=== PATIENT | female | born 1950 | race Hispanic/Latino ===

== ENCOUNTER → 2017-12-05 | Outpatient (CLI) | payer MEDICAID | LOC: RAH 09:07 | PROVIDERS: ATTEND Internal Medicine Critical Care Medicine | DX: Z12.31 Encounter for screening mammogram for malignant neoplasm of breast (principal) | CPT/HCPCS: 77067 ==

== ENCOUNTER → 2018-12-06 | Outpatient (CLI) | payer MEDICAID | END | disposition home or self-care (01) | LOC: RAH 08:59 | PROVIDERS: ATTEND Internal Medicine Critical Care Medicine | DX: Z12.31 Encounter for screening mammogram for malignant neoplasm of breast (principal) | CPT/HCPCS: 77067 ==

== ENCOUNTER 2020-02-03 11:12 | Inpatient (IN) | payer MEDICAID ==
[~2020-02-03] VITALS: Ht 157.5 cm; Wt 53.2 kg
[2020-02-03 11:50] LABS: BASOPHILS % (AUTO) 0.1 % (0.0-5.0); HEMATOCRIT 39.4 % (36-48); LYMPHOCYTES % (AUTO) 4.3 % (21.0-51.0); MEAN CORPUSCULAR HEMOGLOBIN 28.6 pg (27.0-33.0); MEAN CORPUSCULAR VOLUME 86.6 fL (79-99); MONOCYTES % (AUTO) 7.4 % (3.0-13.0); NEUTROPHILS % (AUTO) 87.8 % (40.0-77.0); PLATELET COUNT (AUTO) 310 K/uL (130-400); RED BLOOD CELL COUNT(AUTO) 4.55 MIL/uL (4.00-5.50); WHITE BLOOD COUNT (AUTO) 13.8 K/uL (4.8-10.8)
[2020-02-03 11:56] LABS: CREATININE 0.8 mg/dL (0.5-1.5); POTASSIUM 3.3 mmol/L (3.5-5.1)
[2020-02-03 12:13] LABS: RAPID GROUP A STREP NEGATIVE (NEGATIVE)
[2020-02-03 12:31] LABS: B-TYPE NATRIURETIC PEPTIDE 21 pg/mL (0-100)
[2020-02-03] MEDS ORDERED: METHYLPREDNISOLONE SOD SUCC 125MG/2ML VIAL ONE (12:32)
[2020-02-03] MEDS ORDERED: ALBUTEROL INHALER 90MCG/INH IH ONE (12:33)
[2020-02-03] MEDS ORDERED: ENOXAPARIN SODIUM 40 MG/0.4 ML SYRINGE SQ ONE (13:07)
[2020-02-03 13:19] LABS: APPEARANCE,URINE Clear (CLEAR); BILIRUBIN,URINE Negative (NEGATIVE); COLOR,URINE Yellow (YELLOW); GLUCOSE, URINE (UA) >=1000 mg/dL (NEGATIVE); KETONES,URINE >=160 mg/dL (NEGATIVE); LEUKOCYTE ESTERASE ,URINE Negative (NEGATIVE); NITRATE,URINE Negative (NEGATIVE); OCCULT BLOOD,URINE Small (NEGATIVE); PROTEIN,URINE POS 2+ mg/dL (NEGATIVE)
[2020-02-03] MEDS ORDERED: DEXTROSE 50%-WATER 50 ML DISP.SYRIN IV PRN (13:30)
[2020-02-03] MEDS ORDERED: IPRATROPIUM/ALBUTEROL SULFATE 3 ML SOLUTION IH PRN (13:30)
[2020-02-03] MEDS ORDERED: LOPERAMIDE 1 MG/7.5 ML UDCUP PO PRN (13:30)
[2020-02-03] MEDS ORDERED: ONDANSETRON HCL 4 MG/2 ML VIAL IVP PRN (13:30)
[2020-02-03] MEDS: FUROSEMIDE 10 MG/ML 4ML VIAL IV SCH (13:30)
[2020-02-03] MEDS ORDERED: MAGNESIUM 2GM PREMIX 50ML 50 ML IV PRN (13:30)
[2020-02-03] MEDS ORDERED: LABETALOL 20 MG/4 ML DISP.SYRIN IV PRN (13:30)
[2020-02-03] MEDS ORDERED: HYDRALAZINE HCL 20 MG/ML VIAL IV PRN (13:30)
[2020-02-03] MEDS ORDERED: POTASSIUM CHLORIDE 10% ELIXIR 20 MEQ/15 ML UDCUP PO PRN (13:30)
[2020-02-03] MEDS ORDERED: GLUCAGON 1MG KIT 1 MG ML IM PRN (13:30)
[2020-02-03] MEDS ORDERED: LIDOCAINE HCL-MPF 1% 2ML VIAL IV PRN (13:30)
[2020-02-03] MEDS ORDERED: LACTULOSE 20 GM/30 ML UDCUP PO PRN (13:30)
[2020-02-03] MEDS ORDERED: POTASSIUM CHLORIDE 20MEQ/100ML 100 ML IV PRN (13:30)
[2020-02-03 13:39] LABS: BACTERIA,URINE Few /HPF (None Seen); TRANSITIONAL EPI CELLS,URINE Few /HPF (None Seen)
[2020-02-03] MEDS ORDERED: LOPERAMIDE HCL 2 MG CAP PO PRN (14:15)
[2020-02-03 14:28] LABS: CRP QUANTITATIVE 470.7 mg/L (0.00-9.0)
[2020-02-03 14:29] LABS: ABG BASE EXCESS -7.2 mmol/L (-2.0-3.0); ABG HCO3 16.6 mmol/L (21.0-28.0); ABG OXYGEN SATURATION 91.3 % (95.0-99.0); ABG PCO2 30 mmHg (32-45)
[2020-02-03] MEDS ORDERED: ALBUTEROL INHALER 90MCG/INH IH PRN (14:45)
[2020-02-03] MEDS: CEFTRIAXONE SODIUM 1 GM IVP SCH (14:45)
[2020-02-03] MEDS ORDERED: AZITHROMYCIN 500MG+NS 250ML 250 ML IV ONE (14:51)
[2020-02-03] MEDS ORDERED: FUROSEMIDE 10 MG/ML 4ML VIAL ONE (15:36)
[2020-02-03] MEDS ORDERED: PHARMACY COMMUNICATION MISC SCH (16:30)
[2020-02-03] MEDS ORDERED: DOXYCYCLINE HYCLATE 100 MG TABLET PO ONE (17:36)
[2020-02-03] MEDS ORDERED: CEFTRIAXONE SODIUM 1 GM ONE (17:37)
[2020-02-03] MEDS: DOXYCYCLINE HYCLATE 100 MG TABLET PO SCH (21:00)
[2020-02-03] MEDS ORDERED: POTASSIUM CHLORIDE 20 MEQ ERTAB PO ONE (22:14)
[2020-02-03] MEDS ORDERED: INSULIN HUMULIN R 100 UNIT/ML 3ML ONE (22:15)
[2020-02-04] VITALS: BP 121/57
[2020-02-04] MEDS: FUROSEMIDE 10 MG/ML 4ML VIAL IV SCH ×2 (01:30→13:30)
[2020-02-04] MEDS ORDERED: FUROSEMIDE 10 MG/ML 4ML VIAL ONE ×2 (04:06→15:39)
[2020-02-04 05:00] LABS: BASOPHILS % (AUTO) 0.2 % (0.0-5.0); HEMATOCRIT 38.7 % (36-48); LYMPHOCYTES % (AUTO) 4.9 % (21.0-51.0); MEAN CORPUSCULAR HEMOGLOBIN 27.9 pg (27.0-33.0); MEAN CORPUSCULAR HGB CONC 32.6 g/dL (32.0-36.0); MEAN CORPUSCULAR VOLUME 85.8 fL (79-99); MONOCYTES % (AUTO) 5.1 % (3.0-13.0); NEUTROPHILS % (AUTO) 89.4 % (40.0-77.0); PLATELET COUNT (AUTO) 335 K/uL (130-400); RED BLOOD CELL COUNT(AUTO) 4.51 MIL/uL (4.00-5.50); WHITE BLOOD COUNT (AUTO) 10.7 K/uL (4.8-10.8)
[2020-02-04 05:14] LABS: ALBUMIN 2.6 g/dL (3.5-5.0); BILIRUBIN,TOTAL 0.5 mg/dL (0.2-1.0); CREATININE 1.2 mg/dL (0.5-1.5); POTASSIUM 3.5 mmol/L (3.5-5.1); TOTAL PROTEIN, SERUM 7.5 g/dL (6.0-8.3)
[2020-02-04] MEDS ORDERED: DOXYCYCLINE HYCLATE 100 MG TABLET PO ONE (05:29)
[2020-02-04] MEDS: DOXYCYCLINE HYCLATE 100 MG TABLET PO SCH ×2 (09:00→21:48)
[2020-02-04] MEDS: DEXAMETHASONE SOD PHOSPHATE 4 MG/ML 1ML VIAL IVP SCH (09:00)
[2020-02-04] MEDS ORDERED: ENOXAPARIN SODIUM 1 MG/KG SQ SCH (09:00)
[2020-02-04] MEDS: PANTOPRAZOLE SODIUM 40 MG TABLET.DR PO SCH (09:00)
[2020-02-04] MEDS ORDERED: PANTOPRAZOLE SODIUM 40 MG TABLET.DR ONE (09:19)
--- NOTE | 2020-02-04 11:20 | NUR ---
BRYAN unable to meet with pt who is in ER covid unit. Bryan called cell # [phone], no answer. Bryan called daughter Loraine Osman [phone], left message. SW to f/u and complete IA
--- NOTE | 2020-02-04 11:31 | NUR ---
DCP: HOME Sw recd call back from pt's daughter Loraine Osman [phone]. Per daughter, pt lives at home alone. Loraine is pt's provider 17hrs a week thru [employer]. Pt usesno DME of services. Daughter transports as needed. PCP is Dr Mauro and pt's uses [facility]. Per daughter, pt's daughter from [place] came to visit and exposed pt and pt's other daughter with covid. Pt's daughter waiting on results. Plan is home at ia Addendum: 02/04/20 at 1136 by AURY ASHBY Amended: Links added.
[2020-02-04] MEDS: INSULIN HUMULIN R 100 UNIT/ML 3ML SQ SCH ×3 (12:11→21:00)
[2020-02-04] MEDS: CEFTRIAXONE SODIUM 1 GM IVP SCH (14:45)
[2020-02-04] MEDS ORDERED: SODIUM CHLORIDE 0.9% 50 ML IV ONE (15:42)
[2020-02-04] MEDS ORDERED: CEFTRIAXONE SODIUM 1 GM ONE (16:15)
[2020-02-04] MEDS ORDERED: PHARMACY COMMUNICATION MISC SCH (18:15)
[2020-02-05 04:00] VITALS: BP 146/67
[2020-02-05] MEDS ORDERED: FUROSEMIDE 10 MG/ML 4ML VIAL ONE ×2 (04:23→12:59)
[2020-02-05] MEDS: FUROSEMIDE 10 MG/ML 4ML VIAL IV SCH ×2 (04:29→13:30)
[2020-02-05] MEDS: INSULIN HUMULIN R 100 UNIT/ML 3ML SQ SCH ×2 (06:41→11:30)
[2020-02-05 08:00] VITALS: BP 113/67
[2020-02-05] MEDS: PANTOPRAZOLE SODIUM 40 MG TABLET.DR PO SCH (09:00)
[2020-02-05] MEDS: ENOXAPARIN SODIUM 60 MG/0.6 ML SQ SCH (09:00)
[2020-02-05] MEDS: DEXAMETHASONE SOD PHOSPHATE 4 MG/ML 1ML VIAL IVP SCH (09:00)
[2020-02-05] MEDS: DOXYCYCLINE HYCLATE 100 MG TABLET PO SCH ×2 (09:00→21:00)
[2020-02-05] MEDS ORDERED: ENOXAPARIN SODIUM 60 MG/0.6 ML SQ ONE (10:16)
[2020-02-05] MEDS ORDERED: DOXYCYCLINE HYCLATE 100 MG TABLET PO ONE (10:16)
[2020-02-05] MEDS ORDERED: DEXAMETHASONE SOD PHOSPHATE 10MG/ML 1ML VIAL ONE (10:17)
[2020-02-05] MEDS ORDERED: PANTOPRAZOLE SODIUM 40 MG TABLET.DR ONE (10:17)
[2020-02-05 12:00] VITALS: BP 139/85
--- NOTE | 2020-02-05 12:10 | NUR ---
DISCUSSED POSSIBLE DC NEEDS W PATRICIA PENA AND RT KING- ACCORDING TO MED HOST, PATIENT CURRENTLY ON 4 LNC SATS 94%- WILL WAIT FOR RECOMMENDATIONS AND OR WEANING
[2020-02-05] MEDS ORDERED: CEFTRIAXONE SODIUM 1 GM ONE (12:59)
[2020-02-05] MEDS ORDERED: INSULIN HUMULIN R 100 UNIT/ML 3ML ONE ×2 (13:00→17:54)
[2020-02-05] MEDS: CEFTRIAXONE SODIUM 1 GM IVP SCH (13:53)
--- NOTE | 2020-02-05 15:09 | NUR ---
ALLO2 REFRRAL INFO SENT TO [facility] PATIENT ADVISED BY P COULD BE PROCESSED TODAY
[2020-02-05 16:00] VITALS: BP 119/61
[2020-02-06] MEDS: FUROSEMIDE 10 MG/ML 4ML VIAL IV SCH ×2 (01:30→17:37)
[2020-02-06] MEDS ORDERED: FUROSEMIDE 10 MG/ML 4ML VIAL ONE (02:23)
[2020-02-06] MEDS ORDERED: DOXYCYCLINE HYCLATE 100 MG TABLET PO ONE (02:23)
[2020-02-06 07:06] LABS: BASOPHILS % (AUTO) 0.2 % (0.0-5.0); EOSINOPHILS % (AUTO) 0.2 % (0.0-8.0); HEMATOCRIT 36.3 % (36-48); LYMPHOCYTES % (AUTO) 4.7 % (21.0-51.0); MEAN CORPUSCULAR HEMOGLOBIN 28.1 pg (27.0-33.0); MEAN CORPUSCULAR HGB CONC 33.3 g/dL (32.0-36.0); MEAN CORPUSCULAR VOLUME 84.4 fL (79-99); MONOCYTES % (AUTO) 7.3 % (3.0-13.0); NEUTROPHILS % (AUTO) 86.9 % (40.0-77.0); PLATELET COUNT (AUTO) 281 K/uL (130-400); RED CELL DISTRIBUTION WIDTH 13.1 % (11.0-15.5); WHITE BLOOD COUNT (AUTO) 11.9 K/uL (4.8-10.8)
[2020-02-06] MEDS: INSULIN HUMULIN R 100 UNIT/ML 3ML SQ SCH ×4 (07:30→21:04)
[2020-02-06 08:29] LABS: ALBUMIN 2.5 g/dL (3.5-5.0); BILIRUBIN,TOTAL 0.5 mg/dL (0.2-1.0); CREATININE 0.9 mg/dL (0.5-1.5); MAGNESIUM 2.3 mg/dL (1.80-2.40); TOTAL PROTEIN, SERUM 6.9 g/dL (6.0-8.3)
--- NOTE | 2020-02-06 10:13 | NUR ---
DISPO EXPECTED TO BE TO HOME WHEN O2 SET UP Addendum: 02/06/20 at 1013 by MARIA ANTONIA MCKENNA RN CM Amended: Links added.
[2020-02-06] MEDS: DOXYCYCLINE HYCLATE 100 MG TABLET PO SCH ×2 (11:39→21:00)
[2020-02-06] MEDS: PANTOPRAZOLE SODIUM 40 MG TABLET.DR PO SCH (11:39)
[2020-02-06] MEDS: DEXAMETHASONE SOD PHOSPHATE 4 MG/ML 1ML VIAL IVP SCH (11:40)
[2020-02-06] MEDS: CEFTRIAXONE SODIUM 1 GM IVP SCH (11:40)
[2020-02-06] MEDS: ENOXAPARIN SODIUM 60 MG/0.6 ML SQ SCH (11:53)
[2020-02-06] MEDS: POTASSIUM CHLORIDE 20 MEQ ERTAB PO PRN ×3 (11:54→19:21)
[2020-02-06 12:03] VITALS: BP 127/60
[2020-02-06 16:00] VITALS: BP 132/67
[2020-02-06 19:30] VITALS: BP 116/56
[2020-02-07] VITALS (7 sets, daily range): BP systolic 107–136; BP diastolic 59–79
[2020-02-07 04:15] LABS: ABG HCO3 20.8 mmol/L (21.0-28.0); ABG OXYGEN SATURATION 93.7 % (95.0-99.0); ABG PCO2 31 mmHg (32-45)
[2020-02-07 04:24] LABS: HEMOGLOBIN A1C 8.3 % (4.0-6.0)
[2020-02-07 04:31] LABS: CREATININE 0.8 mg/dL (0.5-1.5)
[2020-02-07] MEDS: FUROSEMIDE 10 MG/ML 4ML VIAL IV SCH ×2 (04:45→16:33)
[2020-02-07] MEDS: INSULIN HUMULIN R 100 UNIT/ML 3ML SQ SCH ×4 (05:48→21:05)
[2020-02-07] MEDS: DOXYCYCLINE HYCLATE 100 MG TABLET PO SCH ×2 (08:31→21:04)
[2020-02-07] MEDS: DEXAMETHASONE SOD PHOSPHATE 4 MG/ML 1ML VIAL IVP SCH (08:31)
[2020-02-07] MEDS: ENOXAPARIN SODIUM 60 MG/0.6 ML SQ SCH (08:31)
[2020-02-07] MEDS: PANTOPRAZOLE SODIUM 40 MG TABLET.DR PO SCH (08:31)
--- NOTE | 2020-02-07 12:00 | NUR ---
AT 1145 PT O2 SATS WERE DROPPING IN THE 80%. PT PLACED ON VENTI MASK AT 15L AND IS NOW SATING AT 92%. MADE AWARE OF CHANGES.
[2020-02-07] MEDS: GUAIFENESIN-DM 200/20 MG 10 ML PO PRN (12:33)
--- NOTE | 2020-02-07 14:38 | NUR ---
CM NOTE/[facility] PAT[facility] PER [facility] PAT[facility], PENDING OXYGEN CONCENTRATORS TO BE AVAILABLE TO THEM. OUT OF OXYGEN AT THE MOMENT. PATIENT NOT READY FOR DC SHE DESATS INTO 80%, MD AWARE.
[2020-02-07] MEDS: CEFTRIAXONE SODIUM 1 GM IVP SCH (14:57)
[2020-02-08 03:05] VITALS: BP 116/62
[2020-02-08] MEDS: FUROSEMIDE 10 MG/ML 4ML VIAL IV SCH ×2 (05:58→17:08)
[2020-02-08] MEDS: INSULIN HUMULIN R 100 UNIT/ML 3ML SQ SCH ×4 (06:03→21:45)
[2020-02-08 06:08] LABS: BASOPHILS % (AUTO) 0.5 % (0.0-5.0); HEMATOCRIT 42.1 % (36-48); LYMPHOCYTES % (AUTO) 7.7 % (21.0-51.0); MEAN CORPUSCULAR HEMOGLOBIN 28.3 pg (27.0-33.0); MEAN CORPUSCULAR HGB CONC 33.3 g/dL (32.0-36.0); MEAN CORPUSCULAR VOLUME 85.2 fL (79-99); NEUTROPHILS % (AUTO) 79.6 % (40.0-77.0); PLATELET COUNT (AUTO) 262 K/uL (130-400); RED BLOOD CELL COUNT(AUTO) 4.94 MIL/uL (4.00-5.50); RED CELL DISTRIBUTION WIDTH 12.9 % (11.0-15.5); WHITE BLOOD COUNT (AUTO) 11.8 K/uL (4.8-10.8)
[2020-02-08 06:33] LABS: CREATININE 0.6 mg/dL (0.5-1.5); MAGNESIUM 2.5 mg/dL (1.80-2.40); PHOSPHORUS 2.2 mg/dL (2.5-4.9); POTASSIUM 3.6 mmol/L (3.5-5.1)
[2020-02-08 08:00] VITALS: BP 99/59
--- NOTE | 2020-02-08 08:15 | NUR ---
AM ASSESSMENT PT AWAKE AND ALERT, O2 PER NON-REBREATHER, COLLEEN SOB, DENIES PAIN. PATIENT REMINDED NOT TO REMOVE O2, DESATURATES TO MID 80'S OFF O2. O2 SAT 94-05% WITH NON-REBREATHER. CALL LIGHT WITHIN REACH
[2020-02-08] MEDS: DOXYCYCLINE HYCLATE 100 MG TABLET PO SCH ×2 (09:05→21:44)
[2020-02-08] MEDS: DEXAMETHASONE SOD PHOSPHATE 4 MG/ML 1ML VIAL IVP SCH (09:05)
[2020-02-08] MEDS: PANTOPRAZOLE SODIUM 40 MG TABLET.DR PO SCH (09:05)
[2020-02-08] MEDS: ENOXAPARIN SODIUM 60 MG/0.6 ML SQ SCH (09:07)
[2020-02-08 12:00] VITALS: BP 124/71
[2020-02-08] MEDS: CEFTRIAXONE SODIUM 1 GM IVP SCH (15:44)
[2020-02-08 16:00] VITALS: BP 136/63
--- NOTE | 2020-02-08 16:00 | NUR ---
DR CIARA URBINA HERE TO SEE PT, STATES PATIENT AGREED FOR CONVALESCENT PLASMA. PER BRIDGETTE [facility], WILL REGISTER PT.
--- NOTE | 2020-02-08 16:15 | NUR ---
LAB CALL PLACED TO LAB AND CONFIRMED PT HAS CURRENT TYPE AND SCREEN
[2020-02-08 20:40] VITALS: BP 105/66
[2020-02-08 23:51] VITALS: BP 129/64
[2020-02-09 03:40] VITALS: BP 111/65
[2020-02-09] MEDS: GUAIFENESIN-DM 200/20 MG 10 ML PO PRN ×3 (03:49→21:32)
[2020-02-09 04:54] LABS: ABG BASE EXCESS 3.1 mmol/L (-2.0-3.0); ABG OXYGEN SATURATION 94.2 % (95.0-99.0); ABG PCO2 39 mmHg (32-45)
[2020-02-09] MEDS: INSULIN HUMULIN R 100 UNIT/ML 3ML SQ SCH ×4 (06:05→21:31)
[2020-02-09 06:17] LABS: BASOPHILS % (AUTO) 0.3 % (0.0-5.0); EOSINOPHILS % (AUTO) 0.1 % (0.0-8.0); LYMPHOCYTES % (AUTO) 5.6 % (21.0-51.0); MEAN CORPUSCULAR HEMOGLOBIN 27.7 pg (27.0-33.0); MEAN CORPUSCULAR HGB CONC 32.9 g/dL (32.0-36.0); MEAN CORPUSCULAR VOLUME 84.2 fL (79-99); MONOCYTES % (AUTO) 9.2 % (3.0-13.0); PLATELET COUNT (AUTO) 248 K/uL (130-400); RED BLOOD CELL COUNT(AUTO) 4.87 MIL/uL (4.00-5.50); RED CELL DISTRIBUTION WIDTH 12.9 % (11.0-15.5); WHITE BLOOD COUNT (AUTO) 12.7 K/uL (4.8-10.8)
[2020-02-09] MEDS: FUROSEMIDE 10 MG/ML 4ML VIAL IV SCH ×2 (06:38→17:24)
[2020-02-09 06:44] LABS: ALBUMIN 2.4 g/dL (3.5-5.0); BILIRUBIN,DIRECT 0.1 mg/dL (0.0-0.3); BILIRUBIN,TOTAL 0.5 mg/dL (0.2-1.0); CREATININE 0.8 mg/dL (0.5-1.5); MAGNESIUM 2.4 mg/dL (1.80-2.40); PHOSPHORUS 2.6 mg/dL (2.5-4.9); TOTAL PROTEIN, SERUM 6.6 g/dL (6.0-8.3)
[2020-02-09 06:52] LABS: POTASSIUM 2.9 mmol/L (3.5-5.1)
[2020-02-09 08:41] VITALS: BP 122/65
[2020-02-09] MEDS: PANTOPRAZOLE SODIUM 40 MG TABLET.DR PO SCH (08:59)
[2020-02-09] MEDS: POTASSIUM CHLORIDE 20 MEQ ERTAB PO PRN ×2 (08:59→12:13)
[2020-02-09] MEDS: DOXYCYCLINE HYCLATE 100 MG TABLET PO SCH (08:59)
[2020-02-09] MEDS: DEXAMETHASONE SOD PHOSPHATE 4 MG/ML 1ML VIAL IVP SCH (08:59)
[2020-02-09] MEDS: ENOXAPARIN SODIUM 60 MG/0.6 ML SQ SCH (09:00)
--- NOTE | 2020-02-09 12:30 | NUR ---
CONVALESCENT PLASMA TRANSFUSION STARTED AFTER S/S OF ADVERSE REACTION EXPLAINED TO PT. AND VERBALIZED UNDERSTANDING; ALL QUESTIONS ANSWERED. THIS NURSE AT BEDSIDE.
--- NOTE | 2020-02-09 12:35 | NUR ---
TRANSFUSION IN PROGRESS. DENIES ANY C/O AT THIS TIME. ALL LIGHT WITHIN REACH. THIS NURSE AT BEDSIDE.
[2020-02-09 12:44] VITALS: BP 105/61
--- NOTE | 2020-02-09 13:20 | NUR ---
TRANSFUSION IN PROGRESS. PT. RESTING IN BED WITH EYES CLOSED, RESP.'S EVEN AND UNLABORED. NRB REMAINS IN PLACE. HOB AT 30 DEGREES.
--- NOTE | 2020-02-09 13:40 | NUR ---
PLASMA TRANSFUSION COMPLETED. DENIES ANY C/O AT THIS TIME. CALL LIGHT WITHIN REACH.
[2020-02-09] MEDS: CEFTRIAXONE SODIUM 1 GM IVP SCH (13:57)
--- NOTE | 2020-02-09 15:45 | NUR ---
SECOND UNIT OF PLASMA STARTED AFTER S/S OF ADVERSE REACTION EXPLAINED TO PT.; VERBALIZED UNDERSTANDING. CALL LIGHT WITHIN REACH.
--- NOTE | 2020-02-09 15:52 | NUR ---
TRANSFUSION IN PROGRESS, PT. DENIES ANY C/O.
--- NOTE | 2020-02-09 16:25 | NUR ---
DR. Afsaneh YOUNG IN ROOM SPEAKING WITH PT. Addendum: 02/09/20 at 1634 by SAMANTHA MENDOZA RN RN PLASMA TRANSFUSION IN PROGRESS.
[2020-02-09 16:32] VITALS: BP 112/69
--- NOTE | 2020-02-09 17:05 | NUR ---
TRANSFUSION COMPLETED. TOLERATED W/O C/O. CALL LIGHT WITHIN REACH.
[2020-02-09 20:13] VITALS: BP 123/87
[2020-02-09 23:42] VITALS: BP 112/58
[2020-02-10 03:51] VITALS: BP 125/68
[2020-02-10] MEDS: INSULIN HUMULIN R 100 UNIT/ML 3ML SQ SCH ×4 (06:33→20:50)
[2020-02-10 08:00] VITALS: BP 114/53
--- NOTE | 2020-02-10 08:05 | NUR ---
PT. RESTING IN BED WITH EYES CLOSED, RESP.'S EVEN AND UNLABORED. AWOKE FROM SLEEP. ALERT AND ORIENTED X3. DENIES ANY C/O SOB, DENIES ANY CURRENT PAIN. STATES BREATHING BETTER AND WAS ABLE TO SLEEP LAST NIGHT. O2 SATURATION 96-98% ON NRB; NRB CHANGED TO VM AT 50%. CALL LIGHT WITHIN REACH, VERBALIZED ABILITY TO USE. O2 SAT.-94% ON VM AT 50% FIO2.
[2020-02-10] MEDS: DEXAMETHASONE SOD PHOSPHATE 4 MG/ML 1ML VIAL IVP SCH (08:06)
[2020-02-10] MEDS: ENOXAPARIN SODIUM 40 MG/0.4 ML SYRINGE SQ SCH (08:06)
[2020-02-10] MEDS: PANTOPRAZOLE SODIUM 40 MG TABLET.DR PO SCH (08:07)
[2020-02-10] MEDS: FUROSEMIDE 10 MG/ML 2ML VIAL IV SCH (08:07)
[2020-02-10 12:00] VITALS: BP 111/61
--- NOTE | 2020-02-10 13:03 | NUR ---
DR. Afsaneh YOUNG IN ROOM SPEAKING WITH PT. RE:PLAN OF CARE. PT. ON 50% VM AT PRESENT TIME. DENIES ANY C/O SOB.
[2020-02-10 16:00] VITALS: BP 111/61
[2020-02-10 20:00] VITALS: BP 114/64
[2020-02-10] MEDS: NYSTATIN 15 GM POWDER TP SCH (20:09)
[2020-02-11] MEDS: GUAIFENESIN-DM 200/20 MG 10 ML PO PRN (00:07)
[2020-02-11 00:20] VITALS: BP 122/62
[2020-02-11 04:00] VITALS: BP 105/58
[2020-02-11] MEDS: INSULIN HUMULIN R 100 UNIT/ML 3ML SQ SCH ×4 (05:18→20:38)
[2020-02-11 08:00] VITALS: BP 127/64
[2020-02-11] MEDS: DEXAMETHASONE SOD PHOSPHATE 4 MG/ML 1ML VIAL IVP SCH (08:12)
[2020-02-11] MEDS: FUROSEMIDE 10 MG/ML 2ML VIAL IV SCH (08:12)
[2020-02-11] MEDS: ENOXAPARIN SODIUM 40 MG/0.4 ML SYRINGE SQ SCH (08:12)
[2020-02-11] MEDS: PANTOPRAZOLE SODIUM 40 MG TABLET.DR PO SCH (08:12)
[2020-02-11] MEDS: NYSTATIN 15 GM POWDER TP SCH ×2 (08:26→21:00)
[2020-02-11 11:00] VITALS: BP 120/63
[2020-02-11] MEDS: AZITHROMYCIN 250 MG TABLET PO SCH (11:44)
[2020-02-11] MEDS: ZINC SULFATE 220 CAPSULE PO SCH (11:44)
[2020-02-11] MEDS: MULTIVITAMIN WITH MINERALS TABLET PO SCH (11:44)
[2020-02-11] MEDS: ASCORBIC ACID 500 MG TAB PO SCH ×2 (11:45→20:37)
[2020-02-11 16:00] VITALS: BP 119/64
[2020-02-11 19:30] VITALS: BP 126/67
[2020-02-12] VITALS: BP 111/63
[2020-02-12 03:57] LABS: HEMATOCRIT 38.9 % (36-48); MEAN CORPUSCULAR HGB CONC 32.9 g/dL (32.0-36.0); MEAN CORPUSCULAR VOLUME 85.1 fL (79-99); RED BLOOD CELL COUNT(AUTO) 4.57 MIL/uL (4.00-5.50); RED CELL DISTRIBUTION WIDTH 12.7 % (11.0-15.5); WHITE BLOOD COUNT (AUTO) 13.7 K/uL (4.8-10.8)
[2020-02-12 04:00] VITALS: BP 123/62
[2020-02-12 04:06] LABS: CREATININE 0.7 mg/dL (0.5-1.5); POTASSIUM 3.6 mmol/L (3.5-5.1)
[2020-02-12] MEDS: INSULIN HUMULIN R 100 UNIT/ML 3ML SQ SCH ×4 (07:24→21:20)
[2020-02-12 08:00] VITALS: BP 139/73
[2020-02-12] MEDS: ZINC SULFATE 220 CAPSULE PO SCH (08:04)
[2020-02-12] MEDS: PANTOPRAZOLE SODIUM 40 MG TABLET.DR PO SCH (08:04)
[2020-02-12] MEDS: ENOXAPARIN SODIUM 40 MG/0.4 ML SYRINGE SQ SCH (08:05)
[2020-02-12] MEDS: ASCORBIC ACID 500 MG TAB PO SCH ×2 (08:05→20:20)
[2020-02-12] MEDS: MULTIVITAMIN WITH MINERALS TABLET PO SCH (08:05)
[2020-02-12] MEDS: DEXAMETHASONE SOD PHOSPHATE 4 MG/ML 1ML VIAL IVP SCH (08:07)
[2020-02-12] MEDS: FUROSEMIDE 10 MG/ML 2ML VIAL IV SCH (08:08)
[2020-02-12] MEDS: NYSTATIN 15 GM POWDER TP SCH ×2 (08:09→20:20)
[2020-02-12] MEDS: AZITHROMYCIN 250 MG TABLET PO SCH (08:09)
[2020-02-12] MEDS: POTASSIUM CHLORIDE 20 MEQ ERTAB PO PRN (08:09)
[2020-02-12] MEDS: GUAIFENESIN-DM 200/20 MG 10 ML PO PRN (08:22)
[2020-02-12 11:00] VITALS: BP 146/67
--- NOTE | 2020-02-12 11:00 | NUR ---
BEVERLEY DOMINGUEZ, IN ROOM SPEAKING WITH PT. RE:PLAN OF CARE. QUESTIONS ANSWERED BY MALTSTER.
--- NOTE | 2020-02-12 12:53 | NUR ---
RDSCREEN - LOS X 9 Pt admitted with positive COVID-19. 75gm CC diet order in place. Elevated BG levels. Vitamin C, MVI, ZnSO4 in place. S/p Plasma infusion. Increased protein needs. Recommend 60gm CCD Recommend Glucerna BID Recommend 60mL ProMod BID secondary to increased protein needs. RD to continue to monitor. Please notify as additional nutrition concerns arise. Thank you.
[2020-02-12 15:00] VITALS: BP 109/56
[2020-02-12 20:00] VITALS: BP 96/54
[2020-02-13] VITALS (7 sets, daily range): BP systolic 107–125; BP diastolic 47–76
[2020-02-13 03:56] LABS: ABG BASE EXCESS 2.8 mmol/L (-2.0-3.0); ABG HCO3 26.7 mmol/L (21.0-28.0); ABG OXYGEN SATURATION 87.7 % (95.0-99.0); ABG PCO2 39 mmHg (32-45)
[2020-02-13] MEDS: INSULIN HUMULIN R 100 UNIT/ML 3ML SQ SCH ×4 (05:58→21:00)
[2020-02-13 06:08] LABS: BASOPHILS % (AUTO) 0.1 % (0.0-5.0); EOSINOPHILS % (AUTO) 0.1 % (0.0-8.0); HEMATOCRIT 38.3 % (36-48); LYMPHOCYTES % (AUTO) 4.9 % (21.0-51.0); MEAN CORPUSCULAR HEMOGLOBIN 27.2 pg (27.0-33.0); MEAN CORPUSCULAR HGB CONC 32.4 g/dL (32.0-36.0); MONOCYTES % (AUTO) 7.6 % (3.0-13.0); NEUTROPHILS % (AUTO) 86.3 % (40.0-77.0); PLATELET COUNT (AUTO) 302 K/uL (130-400); RED BLOOD CELL COUNT(AUTO) 4.56 MIL/uL (4.00-5.50); RED CELL DISTRIBUTION WIDTH 12.7 % (11.0-15.5); WHITE BLOOD COUNT (AUTO) 16.6 K/uL (4.8-10.8)
[2020-02-13 06:41] LABS: ALBUMIN 2.2 g/dL (3.5-5.0); BILIRUBIN,DIRECT 0.1 mg/dL (0.0-0.3); BILIRUBIN,TOTAL 0.5 mg/dL (0.2-1.0); CREATININE 0.6 mg/dL (0.5-1.5); MAGNESIUM 2.4 mg/dL (1.80-2.40); PHOSPHORUS 2.8 mg/dL (2.5-4.9); POTASSIUM 3.9 mmol/L (3.5-5.1); TOTAL PROTEIN, SERUM 6.1 g/dL (6.0-8.3)
[2020-02-13] MEDS: PANTOPRAZOLE SODIUM 40 MG TABLET.DR PO SCH (08:43)
[2020-02-13] MEDS: MULTIVITAMIN WITH MINERALS TABLET PO SCH (08:43)
[2020-02-13] MEDS: ASCORBIC ACID 500 MG TAB PO SCH ×2 (08:43→20:58)
[2020-02-13] MEDS: AZITHROMYCIN 250 MG TABLET PO SCH (08:43)
[2020-02-13] MEDS: ZINC SULFATE 220 CAPSULE PO SCH (08:43)
[2020-02-13] MEDS: DEXAMETHASONE SOD PHOSPHATE 4 MG/ML 1ML VIAL IVP SCH (08:44)
[2020-02-13] MEDS: NYSTATIN 15 GM POWDER TP SCH ×2 (08:44→21:00)
[2020-02-13] MEDS: ENOXAPARIN SODIUM 40 MG/0.4 ML SYRINGE SQ SCH (08:44)
--- NOTE | 2020-02-13 08:45 | NUR ---
ASSESSMENT ENCOUNTERED PT IN HIGH OTERO'S POSITION, A&OX3, TACHYPNEIC, ON PARTIAL NON REBREATHER MASK, O2SATS 83%, PT C/O SOB, PT PLACED ON 100% NON REBREATHER MASK, O2SATS UP TO 92%, AND PT STATES SHE FEELS BETTER. PT IS ABLE TO DEMONSTRATE FEEDING, DRINKING AND MEDICATION WITH BRIEFLY REMOVING AND REPLACING MASK, NO THROAT CLEARING OR COUGH, O2SATS REMAINING >90%, PT UNDERSTOOD TO REMAIN IN BED AND ON 100% NRB, PT DENIES PAIN, DIZZINESS OR LIGHTHEADEDNESS. CALL LIGHT WITHIN REACH.
[2020-02-14] VITALS (7 sets, daily range): BP systolic 104–154; BP diastolic 62–87
--- NOTE | 2020-02-14 04:36 | NUR ---
patient oxygen levels 70s 0400 oxygen check patient in 70s with nrbr on repositioned patient levels went up to 85% patient is not in distress, warm and dry to touch aaox4 able to follow commands oxygen levels stayed at 83-85% asked patient to prone patient was unable to tolerate lying in prone position explained to patient about benefits of lying prone but patient expressed that she has never been able to tolerate lying in a prone position patient turned into a supine position and head of bed elevated , oxygen levels back to baseline of 91%
[2020-02-14] MEDS: INSULIN HUMULIN R 100 UNIT/ML 3ML SQ SCH ×4 (06:22→20:31)
[2020-02-14] MEDS: MULTIVITAMIN WITH MINERALS TABLET PO SCH (08:08)
[2020-02-14] MEDS: ZINC SULFATE 220 CAPSULE PO SCH (08:08)
[2020-02-14] MEDS: ASCORBIC ACID 500 MG TAB PO SCH ×2 (08:08→20:29)
[2020-02-14] MEDS: PANTOPRAZOLE SODIUM 40 MG TABLET.DR PO SCH (08:08)
[2020-02-14] MEDS: ENOXAPARIN SODIUM 40 MG/0.4 ML SYRINGE SQ SCH (08:09)
[2020-02-14] MEDS: AZITHROMYCIN 250 MG TABLET PO SCH (08:09)
[2020-02-14] MEDS: DEXAMETHASONE SOD PHOSPHATE 4 MG/ML 1ML VIAL IVP SCH (08:09)
[2020-02-14] MEDS: NYSTATIN 15 GM POWDER TP SCH ×2 (09:00→20:31)
[2020-02-15 03:50] VITALS: BP 129/70
[2020-02-15 05:42] LABS: BASOPHILS % (AUTO) 0.1 % (0.0-5.0); HEMATOCRIT 41.3 % (36-48); LYMPHOCYTES % (AUTO) 5.5 % (21.0-51.0); MEAN CORPUSCULAR HEMOGLOBIN 27.3 pg (27.0-33.0); MEAN CORPUSCULAR HGB CONC 32.4 g/dL (32.0-36.0); MEAN CORPUSCULAR VOLUME 84.3 fL (79-99); MONOCYTES % (AUTO) 6.2 % (3.0-13.0); NEUTROPHILS % (AUTO) 87.6 % (40.0-77.0); PLATELET COUNT (AUTO) 243 K/uL (130-400); RED CELL DISTRIBUTION WIDTH 12.6 % (11.0-15.5); WHITE BLOOD COUNT (AUTO) 12.5 K/uL (4.8-10.8)
[2020-02-15 06:05] LABS: CREATININE 0.6 mg/dL (0.5-1.5); POTASSIUM 4.4 mmol/L (3.5-5.1)
[2020-02-15] MEDS: INSULIN HUMULIN R 100 UNIT/ML 3ML SQ SCH ×4 (06:16→20:32)
[2020-02-15] MEDS: ZINC SULFATE 220 CAPSULE PO SCH (08:38)
[2020-02-15] MEDS: MULTIVITAMIN WITH MINERALS TABLET PO SCH (08:38)
[2020-02-15] MEDS: PANTOPRAZOLE SODIUM 40 MG TABLET.DR PO SCH (08:38)
[2020-02-15] MEDS: DEXAMETHASONE SOD PHOSPHATE 4 MG/ML 1ML VIAL IVP SCH (08:39)
[2020-02-15] MEDS: AZITHROMYCIN 250 MG TABLET PO SCH (08:39)
[2020-02-15] MEDS: ASCORBIC ACID 500 MG TAB PO SCH ×2 (08:40→20:30)
[2020-02-15] MEDS: ENOXAPARIN SODIUM 40 MG/0.4 ML SYRINGE SQ SCH (08:40)
[2020-02-15 08:52] VITALS: BP 117/65
[2020-02-15] MEDS: NYSTATIN 15 GM POWDER TP SCH ×2 (09:00→20:33)
[2020-02-15 11:30] VITALS: BP 119/66
[2020-02-15 15:30] VITALS: BP 120/66
--- NOTE | 2020-02-15 15:37 | NUR ---
cm note spoke to Josef Mccullough CIRCUIT BREAKER MECHANIC, regarding dc planning, and order for snf level of care. informed that pt is medicaid [employer], and ltach not covered. , but snf, could be considered but, pt still on hi flow o2. pt currently on 100% NRM mask, and snf level of care can only accept, 3-5L O2 max. verbalizes understanding, and states for now will continue to wean off O2.
[2020-02-15] MEDS: FUROSEMIDE 10 MG/ML 2ML VIAL IV SCH (18:08)
[2020-02-15 19:45] VITALS: BP 115/64
[2020-02-15 23:55] VITALS: BP 123/67
[2020-02-16 03:50] VITALS: BP 125/68
[2020-02-16 05:53] LABS: BASOPHILS % (AUTO) 0.1 % (0.0-5.0); HEMATOCRIT 38.5 % (36-48); LYMPHOCYTES % (AUTO) 3.7 % (21.0-51.0); MEAN CORPUSCULAR HEMOGLOBIN 27.5 pg (27.0-33.0); MEAN CORPUSCULAR HGB CONC 32.7 g/dL (32.0-36.0); MEAN CORPUSCULAR VOLUME 84.1 fL (79-99); MONOCYTES % (AUTO) 3.1 % (3.0-13.0); NEUTROPHILS % (AUTO) 92.2 % (40.0-77.0); PLATELET COUNT (AUTO) 420 K/uL (130-400); RED BLOOD CELL COUNT(AUTO) 4.58 MIL/uL (4.00-5.50); RED CELL DISTRIBUTION WIDTH 12.7 % (11.0-15.5); WHITE BLOOD COUNT (AUTO) 11.4 K/uL (4.8-10.8)
[2020-02-16 05:56] LABS: ALBUMIN 2.2 g/dL (3.5-5.0); BILIRUBIN,TOTAL 0.4 mg/dL (0.2-1.0); CREATININE 0.6 mg/dL (0.5-1.5); POTASSIUM 3.9 mmol/L (3.5-5.1); TOTAL PROTEIN, SERUM 6.7 g/dL (6.0-8.3)
[2020-02-16] MEDS: FUROSEMIDE 10 MG/ML 2ML VIAL IV SCH ×2 (05:57→17:48)
[2020-02-16] MEDS: INSULIN HUMULIN R 100 UNIT/ML 3ML SQ SCH ×4 (05:57→20:41)
[2020-02-16 07:30] VITALS: BP_SYST 125; BP_SYST 141; BP_DIAS 68; BP_DIAS 83
[2020-02-16] MEDS: AZITHROMYCIN 250 MG TABLET PO SCH (07:35)
[2020-02-16] MEDS: PANTOPRAZOLE SODIUM 40 MG TABLET.DR PO SCH (07:35)
[2020-02-16] MEDS: ZINC SULFATE 220 CAPSULE PO SCH (07:35)
[2020-02-16] MEDS: DEXAMETHASONE SOD PHOSPHATE 4 MG/ML 1ML VIAL IVP SCH (07:35)
[2020-02-16] MEDS: MULTIVITAMIN WITH MINERALS TABLET PO SCH (07:35)
[2020-02-16] MEDS: ASCORBIC ACID 500 MG TAB PO SCH ×2 (07:35→20:39)
[2020-02-16] MEDS: NYSTATIN 15 GM POWDER TP SCH ×2 (07:36→20:42)
[2020-02-16] MEDS: ENOXAPARIN SODIUM 40 MG/0.4 ML SYRINGE SQ SCH (07:36)
[2020-02-16 11:30] VITALS: BP 134/69
[2020-02-16 15:30] VITALS: BP 147/81
[2020-02-16 19:35] VITALS: BP 96/61
[2020-02-16 23:53] VITALS: BP 113/70
[2020-02-17 03:43] VITALS: BP 132/72
[2020-02-17] MEDS: FUROSEMIDE 10 MG/ML 2ML VIAL IV SCH ×2 (05:43→18:22)
[2020-02-17 08:00] VITALS: BP 122/76
[2020-02-17] MEDS: ASCORBIC ACID 500 MG TAB PO SCH ×2 (08:13→20:29)
[2020-02-17] MEDS: ZINC SULFATE 220 CAPSULE PO SCH (08:13)
[2020-02-17] MEDS: MULTIVITAMIN WITH MINERALS TABLET PO SCH (08:13)
[2020-02-17] MEDS: DEXAMETHASONE SOD PHOSPHATE 4 MG/ML 1ML VIAL IVP SCH (08:13)
[2020-02-17] MEDS: AZITHROMYCIN 250 MG TABLET PO SCH (08:13)
[2020-02-17] MEDS: PANTOPRAZOLE SODIUM 40 MG TABLET.DR PO SCH (08:13)
[2020-02-17] MEDS: ENOXAPARIN SODIUM 40 MG/0.4 ML SYRINGE SQ SCH (08:14)
--- NOTE | 2020-02-17 08:30 | NUR ---
ASSESSMENT ENCOUNTERED PT A&OX3 BUT FORGETFUL, IN SEMIFOWLER'S POSITION, ON NRB MASK, O2SATS 81% WITH TACHYPNEA, REPOSITIONED TO HIGH OTERO'S, O2SATS 88% WITH TACHYPNEA, REPOSITIONED PT TO PRONE, O2SATS 91% BUT PT C/O OF BACK PAIN DUE TO OSTEOARTHRITIS, INFORMED HER THAT SHE WOULD BENEFIT FROM ALTERNATING FROM PRONE TO HIGH OTERO'S. SHE STATED SHE ATTEMPT PRONE TOLERATED, CALL LIGHT WITHIN REACH.
[2020-02-17] MEDS: NYSTATIN 15 GM POWDER TP SCH ×2 (09:00→20:39)
--- NOTE | 2020-02-17 09:15 | NUR ---
REPOSITION TO HIGH OTERO'S DUE TO BACK PAIN, O2SATS 89-90% ON NRB. INFORMED PT TO REMAIN IN POSITION TO OPTIMIZE OXYGENATION. PT AGREED.
[2020-02-17 11:30] VITALS: BP 109/61
[2020-02-17] MEDS: INSULIN HUMULIN R 100 UNIT/ML 3ML SQ SCH ×3 (11:30→20:34)
[2020-02-17 15:30] VITALS: BP 109/66
[2020-02-17 20:25] VITALS: BP 107/66
[2020-02-17 23:38] VITALS: BP 120/70
[2020-02-18 04:09] VITALS: BP 146/75
[2020-02-18 05:14] LABS: ABG BASE EXCESS 9.4 mmol/L (-2.0-3.0); ABG HCO3 33.7 mmol/L (21.0-28.0); ABG OXYGEN SATURATION 88.6 % (95.0-99.0); ABG PCO2 44 mmHg (32-45)
[2020-02-18] MEDS: DEXAMETHASONE SOD PHOSPHATE 4 MG/ML 1ML VIAL IVP SCH (07:14)
[2020-02-18] MEDS: FUROSEMIDE 10 MG/ML 2ML VIAL IV SCH ×2 (07:14→15:53)
[2020-02-18] MEDS: MULTIVITAMIN WITH MINERALS TABLET PO SCH (07:15)
[2020-02-18] MEDS: NYSTATIN 15 GM POWDER TP SCH ×2 (07:15→21:00)
[2020-02-18] MEDS: ZINC SULFATE 220 CAPSULE PO SCH (07:15)
[2020-02-18] MEDS: ASCORBIC ACID 500 MG TAB PO SCH ×2 (07:15→20:26)
[2020-02-18] MEDS: ENOXAPARIN SODIUM 40 MG/0.4 ML SYRINGE SQ SCH (07:15)
[2020-02-18] MEDS: PANTOPRAZOLE SODIUM 40 MG TABLET.DR PO SCH (07:15)
[2020-02-18] MEDS: INSULIN HUMULIN R 100 UNIT/ML 3ML SQ SCH ×4 (07:15→20:40)
[2020-02-18 08:00] VITALS: BP 107/71
--- NOTE | 2020-02-18 08:00 | NUR ---
ASSESSMENT PT IS AAOX3 DENIES CP DENIES SOB WHILE AT REST, CURRENTLY ON NRB MASK AT 15LPM, SATURATIONS 90S. SITTING UPRIGHT IN BED, HOB UP AT 35 DEGREES. DENIES NV. BREATHING PATTERN IS EVEN AND UNLABORED AT THIS TIME. NO VISIBLE SIGNS OF DISTRESS NOTED. CALL LIGHT WITHIN REACH. AM MEDS GIVEN AND TOLERATED.
[2020-02-18 12:00] VITALS: BP 120/70
--- NOTE | 2020-02-18 12:00 | NUR ---
Scott KAPLAN ELECTRONICS ENGINEERING MANAGER ROUNDED SAW PATIENT
--- NOTE | 2020-02-18 14:24 | NUR ---
CM NOTE/SNF REFERRAL IN REGARDS TO SNF REFERRAL, PATIENT ON 15 LITERS OF OXYGEN ON NON REBREATHER MASK, NOT READY FOR SNF. BRIDGETTE LOWERY MADE AWARE.
--- NOTE | 2020-02-18 15:11 | NUR ---
RD FOLLOW UP Pt with 60gm CC, Heart Healthy diet order in place. Glucerna BID, 60mL ProMod QD. No report of GI distress. Elevated BG (265). WBC 11.4. Vit C, ZnSO4, MVI in place. S/p Plasma Tx. Prone positioning encouraged as per EMR. Recommend continue diet order. RD to continue to monitor. Please notify as additional nutrition concerns arise. Thank you.
[2020-02-18 16:00] VITALS: BP 124/65
[2020-02-18 20:49] VITALS: BP 118/68
[2020-02-19] VITALS (7 sets, daily range): BP systolic 112–123; BP diastolic 60–82
[2020-02-19] MEDS: INSULIN HUMULIN R 100 UNIT/ML 3ML SQ SCH ×4 (05:59→20:51)
[2020-02-19] MEDS: FUROSEMIDE 10 MG/ML 2ML VIAL IV SCH ×2 (05:59→17:30)
[2020-02-19] MEDS: PANTOPRAZOLE SODIUM 40 MG TABLET.DR PO SCH (08:16)
[2020-02-19] MEDS: ASCORBIC ACID 500 MG TAB PO SCH ×2 (08:16→20:49)
[2020-02-19] MEDS: ZINC SULFATE 220 CAPSULE PO SCH (08:16)
[2020-02-19] MEDS: ENOXAPARIN SODIUM 40 MG/0.4 ML SYRINGE SQ SCH (08:16)
[2020-02-19] MEDS: MULTIVITAMIN WITH MINERALS TABLET PO SCH (08:16)
[2020-02-19] MEDS: NYSTATIN 15 GM POWDER TP SCH ×2 (08:17→20:52)
--- NOTE | 2020-02-19 08:20 | NUR ---
ASSESSMENT PT IS AAOX3. DENIES CP DENIES SOB AT REST, DENIES NV. SITTING UPRIGHT IN BED, BREATHING PATTERN IS EVEN AND UNLABORED AT THIS TIME. NO VISIBLE SIGNS OF DISTRESS NOTED. CURRENTLY ON O2 VIA NRB MASK AT 15LPM. CALL LIGHT WITHIN REACH.
--- NOTE | 2020-02-19 11:26 | NUR ---
FAMILY NOTIFICATION AND UPDATE SPOKE TO DAUGHTER VIKI DRAKE. GIVEN PT STATUS UPDATE AND PLAN OF CARE . ALL QUESTIONS ANSWERED. GIVEN PASSWORD FOR CALLS. I ALSO CALLED ON 02/18/20 BUT VIKI WAS NOT AVAILABLE
--- NOTE | 2020-02-19 12:30 | NUR ---
RESTING IN BED NO COMPLAINTS AT THIS TIME
--- NOTE | 2020-02-19 16:00 | NUR ---
CM NOTE/SNF REFERRAL PER PRIMARY NURSE, PATIENT ON 15 LITERS OF O2, NOT READY FOR DC TO SNF. SARAH HOOKS LIABILITY CLAIMS REPRESENTATIVE MADE AWARE.
[2020-02-19] MEDS: GUAIFENESIN-DM 200/20 MG 10 ML PO PRN (21:36)
[2020-02-20 03:49] VITALS: BP 108/69
[2020-02-20 05:45] LABS: BASOPHILS % (AUTO) 0.1 % (0.0-5.0); EOSINOPHILS % (AUTO) 1.5 % (0.0-8.0); HEMATOCRIT 35.6 % (36-48); LYMPHOCYTES % (AUTO) 7.9 % (21.0-51.0); MEAN CORPUSCULAR HEMOGLOBIN 28.2 pg (27.0-33.0); MEAN CORPUSCULAR HGB CONC 33.1 g/dL (32.0-36.0); MONOCYTES % (AUTO) 6.4 % (3.0-13.0); NEUTROPHILS % (AUTO) 83.4 % (40.0-77.0); PLATELET COUNT (AUTO) 329 K/uL (130-400); RED BLOOD CELL COUNT(AUTO) 4.19 MIL/uL (4.00-5.50); WHITE BLOOD COUNT (AUTO) 12.3 K/uL (4.8-10.8)
[2020-02-20] MEDS: FUROSEMIDE 10 MG/ML 2ML VIAL IV SCH ×2 (05:57→17:43)
[2020-02-20 06:13] LABS: CREATININE 0.5 mg/dL (0.5-1.5); MAGNESIUM 2.3 mg/dL (1.80-2.40); POTASSIUM 3.7 mmol/L (3.5-5.1)
[2020-02-20] MEDS: INSULIN HUMULIN R 100 UNIT/ML 3ML SQ SCH ×4 (06:50→20:19)
[2020-02-20 08:00] VITALS: BP 113/64
[2020-02-20 08:08] LABS: ABG BASE EXCESS 5.9 mmol/L (-2.0-3.0); ABG HCO3 29.3 mmol/L (21.0-28.0); ABG OXYGEN SATURATION 93.3 % (95.0-99.0); ABG PCO2 39 mmHg (32-45)
[2020-02-20] MEDS: ASCORBIC ACID 500 MG TAB PO SCH ×2 (08:50→20:07)
[2020-02-20] MEDS: MULTIVITAMIN WITH MINERALS TABLET PO SCH (08:50)
[2020-02-20] MEDS: PANTOPRAZOLE SODIUM 40 MG TABLET.DR PO SCH (08:50)
[2020-02-20] MEDS: ZINC SULFATE 220 CAPSULE PO SCH (08:50)
[2020-02-20] MEDS: ENOXAPARIN SODIUM 40 MG/0.4 ML SYRINGE SQ SCH (08:52)
[2020-02-20] MEDS: NYSTATIN 15 GM POWDER TP SCH ×2 (11:30→20:07)
--- NOTE | 2020-02-20 11:50 | NUR ---
CM NOTE/SNF REFERRAL PER PRIMARY NURSE, PATIENT ON 15 LITERS OF O2, NOT READY FOR DC TO SNF. SARAH HOOKS ELIGIBILITY MANAGER MADE AWARE.
[2020-02-20 12:00] VITALS: BP 94/47
[2020-02-20 16:00] VITALS: BP 123/70
[2020-02-20 20:00] VITALS: BP 110/64
[2020-02-20] MEDS: GUAIFENESIN-DM 200/20 MG 10 ML PO PRN (20:10)
[2020-02-21] VITALS (7 sets, daily range): BP systolic 112–134; BP diastolic 49–86
[2020-02-21 04:06] LABS: BASOPHILS % (AUTO) 0.2 % (0.0-5.0); EOSINOPHILS % (AUTO) 2.2 % (0.0-8.0); HEMATOCRIT 35.9 % (36-48); LYMPHOCYTES % (AUTO) 6.5 % (21.0-51.0); MEAN CORPUSCULAR HGB CONC 32.9 g/dL (32.0-36.0); MEAN CORPUSCULAR VOLUME 85.1 fL (79-99); MONOCYTES % (AUTO) 7.3 % (3.0-13.0); NEUTROPHILS % (AUTO) 83.1 % (40.0-77.0); PLATELET COUNT (AUTO) 343 K/uL (130-400); RED BLOOD CELL COUNT(AUTO) 4.22 MIL/uL (4.00-5.50); WHITE BLOOD COUNT (AUTO) 10.6 K/uL (4.8-10.8)
[2020-02-21 04:21] LABS: CREATININE 0.5 mg/dL (0.5-1.5); MAGNESIUM 2.1 mg/dL (1.80-2.40); POTASSIUM 3.3 mmol/L (3.5-5.1)
[2020-02-21] MEDS: FUROSEMIDE 10 MG/ML 2ML VIAL IV SCH ×2 (05:58→17:55)
[2020-02-21] MEDS: INSULIN HUMULIN R 100 UNIT/ML 3ML SQ SCH ×4 (05:59→20:17)
[2020-02-21] MEDS: POTASSIUM CHLORIDE 20 MEQ ERTAB PO PRN (05:59)
[2020-02-21] MEDS: ASCORBIC ACID 500 MG TAB PO SCH ×2 (08:19→20:16)
[2020-02-21] MEDS: PANTOPRAZOLE SODIUM 40 MG TABLET.DR PO SCH (08:20)
[2020-02-21] MEDS: ENOXAPARIN SODIUM 40 MG/0.4 ML SYRINGE SQ SCH (08:20)
[2020-02-21] MEDS: ZINC SULFATE 220 CAPSULE PO SCH (08:20)
[2020-02-21] MEDS: NYSTATIN 15 GM POWDER TP SCH ×2 (08:20→20:20)
[2020-02-21] MEDS: MULTIVITAMIN WITH MINERALS TABLET PO SCH (08:20)
--- NOTE | 2020-02-21 11:51 | NUR ---
CM NOTE/SNF REFERRAL PER PRIMARY NURSE, PATIENT ON 15 LITERS OF O2, NOT READY FOR DC TO SNF. BRIDGETTE ARAUZP MADE AWARE.
--- NOTE | 2020-02-21 12:28 | NUR ---
Family notification Attempted to call Loraine Pringle to give her update on pt's condition. No answer
[2020-02-22 04:00] VITALS: BP 127/71
[2020-02-22] MEDS: FUROSEMIDE 10 MG/ML 2ML VIAL IV SCH ×2 (05:18→16:51)
[2020-02-22] MEDS: INSULIN HUMULIN R 100 UNIT/ML 3ML SQ SCH ×4 (05:43→21:00)
[2020-02-22 08:25] VITALS: BP 110/68
[2020-02-22] MEDS: MULTIVITAMIN WITH MINERALS TABLET PO SCH (08:36)
[2020-02-22] MEDS: POTASSIUM CHLORIDE 20 MEQ ERTAB PO PRN ×2 (08:36→16:52)
[2020-02-22] MEDS: ZINC SULFATE 220 CAPSULE PO SCH (08:36)
[2020-02-22] MEDS: PANTOPRAZOLE SODIUM 40 MG TABLET.DR PO SCH (08:37)
[2020-02-22] MEDS: ENOXAPARIN SODIUM 40 MG/0.4 ML SYRINGE SQ SCH (08:37)
[2020-02-22] MEDS: NYSTATIN 15 GM POWDER TP SCH ×2 (08:37→21:00)
[2020-02-22] MEDS: ASCORBIC ACID 500 MG TAB PO SCH ×2 (08:37→22:03)
[2020-02-22 12:39] VITALS: BP 95/63
--- NOTE | 2020-02-22 12:54 | NUR ---
Family notification Attempted to call Loraine Pringle to give her an update on pt. No answer
[2020-02-22] MEDS: GUAIFENESIN-DM 200/20 MG 10 ML PO PRN (15:11)
[2020-02-22 15:46] VITALS: BP 107/64
--- NOTE | 2020-02-22 16:57 | NUR ---
CM NOTE/ATRIUM NOT IN NETWORK PER FELIPE, NOT IN NETWORK. ALSO, ON HIGH FLOW AT 15 LITERS. PER FELIPE, NO MORE THAN 10 LITERS OXYGEN. BRIDGETTE LOWERY MADE AWARE, CM TO FOLLOW UP ACCORDINGLY.
--- NOTE | 2020-02-22 19:55 | NUR ---
PT INSTRUCTED ON BREATHING EXERCISES, IMPORTANCE OF TURNING ON SIDES AND PRONING. PT AGREES ON TURNING TO SIDES, BUT STATES IS NOT ABLE TO PRONE DUE TO OSTEOPOROSIS AND REFUSES PAIN MEDS. Addendum: 02/23/20 at 0316 by VIKI COLLIER RN RN Amended: Links added.
[2020-02-22 20:36] VITALS: BP 128/75
[2020-02-22 23:59] VITALS: BP 128/64
[2020-02-23] MEDS ORDERED: LORAZEPAM 0.5 MG TABLET PO PRN (00:15)
[2020-02-23] MEDS ORDERED: LORAZEPAM 0.5 MG TABLET ONE (00:34)
[2020-02-23] MEDS ORDERED: DILTIAZEM HCL 60 MG TABLET ONE (00:35)
[2020-02-23 03:41] VITALS: BP 130/58
[2020-02-23] MEDS: INSULIN HUMULIN R 100 UNIT/ML 3ML SQ SCH ×3 (06:19→17:32)
[2020-02-23] MEDS: DILTIAZEM HCL 60 MG TABLET PO SCH ×3 (06:26→18:00)
[2020-02-23] MEDS: FUROSEMIDE 10 MG/ML 2ML VIAL IV SCH ×2 (06:27→17:34)
[2020-02-23 06:48] LABS: BASOPHILS % (AUTO) 0.2 % (0.0-5.0); HEMATOCRIT 37.8 % (36-48); MEAN CORPUSCULAR HGB CONC 32.3 g/dL (32.0-36.0); MEAN CORPUSCULAR VOLUME 86.9 fL (79-99); NEUTROPHILS % (AUTO) 93.2 % (40.0-77.0); PLATELET COUNT (AUTO) 396 K/uL (130-400); RED BLOOD CELL COUNT(AUTO) 4.35 MIL/uL (4.00-5.50); RED CELL DISTRIBUTION WIDTH 13.3 % (11.0-15.5); WHITE BLOOD COUNT (AUTO) 17.2 K/uL (4.8-10.8)
[2020-02-23 07:32] LABS: ALBUMIN 2.2 g/dL (3.5-5.0); BILIRUBIN,TOTAL 0.9 mg/dL (0.2-1.0); CREATININE 0.8 mg/dL (0.5-1.5); TOTAL PROTEIN, SERUM 6.9 g/dL (6.0-8.3)
[2020-02-23 07:57] VITALS: BP 108/52
[2020-02-23] MEDS: ASCORBIC ACID 500 MG TAB PO SCH ×2 (08:06→21:00)
[2020-02-23] MEDS: ZINC SULFATE 220 CAPSULE PO SCH (08:06)
[2020-02-23] MEDS: MULTIVITAMIN WITH MINERALS TABLET PO SCH (08:07)
[2020-02-23] MEDS: PANTOPRAZOLE SODIUM 40 MG TABLET.DR PO SCH (08:07)
[2020-02-23] MEDS: NYSTATIN 15 GM POWDER TP SCH ×2 (08:07→21:00)
[2020-02-23] MEDS: ENOXAPARIN SODIUM 40 MG/0.4 ML SYRINGE SQ SCH (08:12)
[2020-02-23 11:26] VITALS: BP 99/60
--- NOTE | 2020-02-23 15:00 | NUR ---
ON MRI OF BRAIN ORDER CANCELLED ,PER AURELIANO SHE WILL FOLLOW UP TOMORROW AND ORDER TEST ,AT THIS TIME PATIENT UNSTABLE FOR TEST .
[2020-02-23 15:24] VITALS: BP 105/62
--- NOTE | 2020-02-23 15:26 | NUR ---
PATIENT WITH NONE VERBAL RESPONSES COMPARING TO VERBAL COMMUNICATION FROM MORNING ,ALERT AND ABLE TO FOLLOW COMMANDS TO NON VERBAL AND AMS . VITALS SIGNS BP 105/69, HR 102,02 SAT 89 ON 15L NONREBREATHER , RESP 22. NOTIFIED CHANGE OF STATUS TO BENCHMARK Thomas BEDOYA NP. NEW ORDERS GIVEN FOR ABG STAT, BMP, CT OF HEAD , AMMONIA LEVELS . NOTIFIED EMERGENCY CONTACT VIKI DRAKE OF STATUS OF CHANGE ON NEW ORDERS WELL. WILL CONT TO MONITOR
[2020-02-23 15:32] LABS: ABG BASE EXCESS 4.9 mmol/L (-2.0-3.0); ABG HCO3 28.6 mmol/L (21.0-28.0); ABG OXYGEN SATURATION 85.3 % (95.0-99.0); ABG PCO2 39 mmHg (32-45)
[2020-02-23 16:14] LABS: POTASSIUM 4.8 mmol/L (3.5-5.1)
[2020-02-23 16:21] VITALS: BP 116/66
--- NOTE | 2020-02-23 16:35 | NUR ---
SPOKE WITH FELIPE FROM MRI REGARDING NEW ORDER FOR MRI OF BRAIN . PER FELIPE WILL CALL ENOC DIXON . .
--- NOTE | 2020-02-23 16:37 | NUR ---
LUCRETIA BEDOYA MAKING ROUNDS , NEW ORDERS FOR NEURO TELE GLUING CREW LEADER . NOTIFIED CHARGE NURSE ESTEBAN ON STATUS AND NEW ORDERS.
--- NOTE | 2020-02-23 18:33 | NUR ---
RECOMMENDATION PLACED BY TELE NEURO , NOTIFIED LUCRETIA BEDOYA.. WILL CONT TO MONITOR
--- NOTE | 2020-02-23 18:50 | NUR ---
UPDATE FOR FAMILY VIKI DAUGHTER OF PATIENT INFORMED HER OF STATUS AND FURTHER TESTING FOR POSSIBLE STROKE INCLUSING NEUROLOGY CONSULT . PER DAUGHTER TO CALL HER FOR FURTHER UPDATES IF NEEDED .
[2020-02-23 20:00] VITALS: BP 132/68
[2020-02-23] MEDS ORDERED: GLUCAGON 1MG KIT 1 MG ML IM PRN (20:00)
[2020-02-23] MEDS ORDERED: DEXTROSE 50%-WATER 50 ML DISP.SYRIN IV PRN (20:00)
[2020-02-23] MEDS: FAMOTIDINE 20MG TAB 20 MG TAB PO SCH (21:00)
[2020-02-23] MEDS: ATORVASTATIN CALCIUM 40 MG TABLET PO SCH (21:00)
[2020-02-24] VITALS (7 sets, daily range): BP systolic 117–140; BP diastolic 68–84
[2020-02-24] MEDS: INSULIN HUMULIN R 100 UNIT/ML 3ML SQ SCH ×4 (01:20→17:07)
[2020-02-24 04:24] LABS: ABG BASE EXCESS 2.7 mmol/L (-2.0-3.0); ABG HCO3 26.5 mmol/L (21.0-28.0); ABG OXYGEN SATURATION 82.9 % (95.0-99.0); ABG PCO2 38 mmHg (32-45)
--- NOTE | 2020-02-24 04:30 | NUR ---
THROUGHOUT SHIFT, PATIENT IN SUPINE AND SIDES WITH O2 SATS LOW90'S-95%. CURRENTLY DESATURATING DOWN TO MID-80'S. PATIENT PLACED ON PRONE POSITION, O2 SATS FLUCTUATING 80'S-91%. WILL CONTINUE TO MONITOR.
[2020-02-24] MEDS: DILTIAZEM HCL 60 MG TABLET PO SCH ×3 (06:00→11:04)
--- NOTE | 2020-02-24 06:25 | NUR ---
PATIENT CONTINUES IN PRONE POSITION, O2 SATS IN LOW 90'S-96%. WILL CONTINUE TO MONITOR.
[2020-02-24] MEDS: FUROSEMIDE 10 MG/ML 2ML VIAL IV SCH ×2 (06:43→11:09)
[2020-02-24 07:35] LABS: THYROID STIMULATING HORMONE 1.13 uIU/mL (0.36-3.74)
[2020-02-24] MEDS: FAMOTIDINE 20MG TAB 20 MG TAB PO SCH ×2 (08:04→21:00)
[2020-02-24] MEDS: MULTIVITAMIN WITH MINERALS TABLET PO SCH (08:04)
[2020-02-24] MEDS: ASCORBIC ACID 500 MG TAB PO SCH ×2 (08:04→21:00)
[2020-02-24] MEDS: ZINC SULFATE 220 CAPSULE PO SCH (08:05)
[2020-02-24] MEDS: NYSTATIN 15 GM POWDER TP SCH ×2 (08:07→21:00)
[2020-02-24] MEDS: ENOXAPARIN SODIUM 40 MG/0.4 ML SYRINGE SQ SCH (08:07)
[2020-02-24 09:40] LABS: BILIRUBIN,TOTAL 0.5 mg/dL (0.2-1.0); POTASSIUM 4.6 mmol/L (3.5-5.1); TOTAL PROTEIN, SERUM 7.8 g/dL (6.0-8.3)
[2020-02-24 09:51] LABS: MAGNESIUM 3.4 mg/dL (1.80-2.40)
[2020-02-24 11:02] LABS: ALBUMIN 2.7 g/dL (3.5-5.0)
--- NOTE | 2020-02-24 11:14 | NUR ---
PATIENT PRONE . CONT ON 0XYGEN .O2 SAT AT 93%. WILL CONT TO MONITOR
--- NOTE | 2020-02-24 11:14 | NUR ---
IN AM GAVE FOLLOW UP TO FAMILY MEMBER JEIMY DAUGHTER OF PATIENT ON STATUS .
[2020-02-24] MEDS ORDERED: DILTIAZEM HCL 125 MG/25 ML 125 MG in SODIUM CHLORIDE 0.9% 100 ML IV PRN (15:15)
--- NOTE | 2020-02-24 15:50 | NUR ---
DYSPHAGIA EVAL COMPLETED. +S/S OF ASPIRATION AT THIS TIME. RECOMMEND SHORT TERM ALTERNATE MEANS OF NUTRITION/HYDRATION. RECOMMENDATIONS: DYSPHAGIA THERAPY 3-5XWEEK TO INCREASE ORAL MOTOR STRENGTH AND PHARYNGEAL SWALLOW: LTG#1: Pt WILL TOLERATE LEAST RESTRICTIVE DIET TO MEET NUTRITION/HYDRATION WITH NO S/S OF ASPIRATION. LTG#2: SKILLED EDUCATION Pt/FAMILY/STAFF STG#1: Pt WILL PARTICIPATE IN LARYNGEAL ELEVATION/EXCURSION EXERCISES WITH 80% ACCURACY. STG#2: Pt WILL PARTICIPATE IN TONGUE BASE RETRACTION EXERCISES WITH 80% ACCURACY. STG#3: Pt WILL PARTICIPATE IN ORAL MOTOR EXERCISES WITH 80% ACCURACY. STG#4: Pt WILL TOLERATE THERAPEUTIC TRIALS OF THIN LIQUID WITH NO OVERT S/S OF ASPIRATION. STG#5: Pt WILL BE ABLE TO PARTICIPATE IN MBSS AFTER 2-4 WEEKS OF THERAPEUTIC INTERVENTION. STG#6: SKILLED EDUCATION Pt/FAMILY/STAFF. FISCAL OFFICER COORDINATED CARE WITH NURSE BRUSH. Addendum: 02/24/[address] GALEN ORTIZ Amended: Links added.
--- NOTE | 2020-02-24 16:00 | NUR ---
FOLLOW UP COMPLETED WELL SERVICE DERRICK WORKER COORDINATED WITH NURSE. Pt TOLERATING DIET RECOMMENDATIONS WITH NO S/S OF ASPIRATION AT THIS TIME. CONTINUE WITH PLAN OF CARE TOLERATED. Addendum: 02/24/[address] GALEN ORTIZ DISREGARD MESSAGE : FOLLOW UP.
[2020-02-24] MEDS: INSULIN GLARGINE 100 UNITS/ML 10 ML VIAL SQ SCH (17:07)
--- NOTE | 2020-02-24 17:30 | NUR ---
CARDIZEM STARTED AT 5ML/HR HR 115 SINUS TACH ,BP 123/71 02 SAT 94 % ON NON REBREATHER AND HIGH FLOW .. WILL CONT TO MONITOR. NOTIFIED OFFICE ADMINISTRATION INSTRUCTOR ON CARDIZEM DRIP STARTED
--- NOTE | 2020-02-24 19:15 | NUR ---
CALLED TO VIKI DAUGHTER OF PATIENT REGARDING UPDATES ON STARTING NEW MEDICATION CARDIZEM FOR HER MOM PER IV . ALSO LEWT HER KNOW RITO HER BROTHER HAD CALLED YESTERDAY ,PER VIKI SHE ALREADY SPOKE WITH HIM ON UPDATES WELL .
[2020-02-24] MEDS: ATORVASTATIN CALCIUM 40 MG TABLET PO SCH (21:00)
[2020-02-25] VITALS (8 sets, daily range): BP systolic 102–162; BP diastolic 50–90
[2020-02-25] MEDS: INSULIN HUMULIN R 100 UNIT/ML 3ML SQ SCH ×4 (01:20→16:50)
[2020-02-25 03:48] LABS: BASOPHILS % (AUTO) 0.1 % (0.0-5.0); HEMATOCRIT 38.5 % (36-48); LYMPHOCYTES % (AUTO) 3.5 % (21.0-51.0); MEAN CORPUSCULAR HEMOGLOBIN 28.1 pg (27.0-33.0); MEAN CORPUSCULAR HGB CONC 32.2 g/dL (32.0-36.0); MEAN CORPUSCULAR VOLUME 87.3 fL (79-99); PLATELET COUNT (AUTO) 316 K/uL (130-400); RED BLOOD CELL COUNT(AUTO) 4.41 MIL/uL (4.00-5.50); WHITE BLOOD COUNT (AUTO) 16.8 K/uL (4.8-10.8)
[2020-02-25 03:56] LABS: ALBUMIN 2.5 g/dL (3.5-5.0); BILIRUBIN,TOTAL 0.4 mg/dL (0.2-1.0); CREATININE 1.1 mg/dL (0.5-1.5); MAGNESIUM 3.6 mg/dL (1.80-2.40); TOTAL PROTEIN, SERUM 7.3 g/dL (6.0-8.3)
--- NOTE | 2020-02-25 07:00 | NUR ---
PATIENT CONTINUES ON CARDIZEM DRIP AT 5MG/HR, ST 100-110, O2 SATS REMAINED 92-99% WHILE TURNED AND REPOSITIONED THROUGHOUT SHIFT. PATIENT REMAINS VERBALLY UNRESPONSIVE AND RIGHT ARM STILL FLACCID, BUT MOVES RIGHT ARM MORE. ENCOURAGED AND ABLE TO HOLD ON TO SIDE RAIL WHILE REPOSITIONING. Addendum: 02/25/20 at 0732 by VIKI COLLIER RN RN CARDIZEM 5ML/HR.
[2020-02-25] MEDS: MULTIVITAMIN WITH MINERALS TABLET PO SCH (08:20)
[2020-02-25] MEDS: ZINC SULFATE 220 CAPSULE PO SCH (08:21)
[2020-02-25] MEDS: FAMOTIDINE 20MG TAB 20 MG TAB PO SCH ×2 (08:21→19:58)
[2020-02-25] MEDS: NYSTATIN 15 GM POWDER TP SCH ×2 (08:21→20:30)
[2020-02-25] MEDS: ASCORBIC ACID 500 MG TAB PO SCH ×2 (08:21→19:58)
[2020-02-25] MEDS: INSULIN GLARGINE 100 UNITS/ML 10 ML VIAL SQ SCH (08:21)
[2020-02-25] MEDS: ENOXAPARIN SODIUM 40 MG/0.4 ML SYRINGE SQ SCH (08:22)
--- NOTE | 2020-02-25 09:40 | NUR ---
CARDIOLOGY DR MUNOZ VISITED WITH PATIENT. PATIENT IS UNRESPONSIVE BUT IS ABLE TO FOLLOW COMMANDS. DR MUNOZ STATED THAT HE DIDN'T HEAR ANY HEART MURMURS. WAITING ON 2DECHO AND NGT
--- NOTE | 2020-02-25 11:30 | NUR ---
DYSPHAGIA RE-EVAL COMPLETED. +S/S OF ASPIRATION. RECOMMEND NPO, LONG-TERM ALTERNATE MEANS OF NUTRITION/HYDRATION. PROFESSOR OF BIOLOGICAL SCIENCES COORDINATED WITH NURSE JORGE AND BEVERLEY LY. THEY VERBALIZED AGREEMENT. RECOMMEND CONTINUE INITIAL PLAN OF CARE. Addendum: 02/25/20 at 1332 by JIM CAPONE, [facility] ST Amended: Links added.
[2020-02-25 11:54] LABS: ABG BASE EXCESS 0.6 mmol/L (-2.0-3.0); ABG HCO3 25.1 mmol/L (21.0-28.0); ABG OXYGEN SATURATION 93.8 % (95.0-99.0); ABG PCO2 40 mmHg (32-45)
[2020-02-25] MEDS: LACTATED RINGERS 1000ML 1,000 ML IV SCH (12:00)
--- NOTE | 2020-02-25 13:30 | NUR ---
UNABLE TO INSERT NGT, PATIENT O2 SAT DROPPED WHEN ATTEMPTED. ST RECOMMENDATION FOR AN PEG TUBE. MALACHI CARRILLO PALS NURSE AWARE. WILL CONTINUE TO MONITOR CLOSELY.
--- NOTE | 2020-02-25 13:34 | NUR ---
DISCUSSED PATIENT STATUS WITH JACKY NOELLE, PATIENT'S DAUGHTER. SHE IS AWARE OF SPEECH THERAPIST RECOMMENDATIONS OF PEG TUBE. VIKI AGREES FOR PEG TUBE PLACEMENT BUT SHE STATED THAT SHE HAS OTHER 4 BROTHERS AND SHE WANTS TO DISCUSS THEIR MOTHER SITUATION FIRST WITH THEM. MALACHI GERARDO AWARE. SHE STATED THAT SHE WILL CALL VIKI LATER TODAY TO DISCUSS ANY FURTHER QUESTIONS AND CONCERNS.
[2020-02-25] MEDS: ATORVASTATIN CALCIUM 40 MG TABLET PO SCH (19:57)
[2020-02-26 04:33] LABS: MEAN CORPUSCULAR HGB CONC 31.5 g/dL (32.0-36.0); MEAN CORPUSCULAR VOLUME 88.8 fL (79-99); PLATELET COUNT (AUTO) 265 K/uL (130-400); RED BLOOD CELL COUNT(AUTO) 4.39 MIL/uL (4.00-5.50); RED CELL DISTRIBUTION WIDTH 14.5 % (11.0-15.5); WHITE BLOOD COUNT (AUTO) 12.2 K/uL (4.8-10.8)
[2020-02-26 04:37] VITALS: BP 121/68
[2020-02-26 04:38] LABS: ALBUMIN 2.5 g/dL (3.5-5.0); BILIRUBIN,TOTAL 0.4 mg/dL (0.2-1.0); CREATININE 0.9 mg/dL (0.5-1.5); MAGNESIUM 3.2 mg/dL (1.80-2.40); TOTAL PROTEIN, SERUM 6.9 g/dL (6.0-8.3)
[2020-02-26 05:48] LABS: BAND NEUTROPHILS % (MANUAL) 13 % (0-2); MAN.DIFF COMMENT-IMPRESSION MANUAL DIFFERENTIAL; MONOCYTES % (MANUAL) 11 % (2-9); PLATELET MORPHOLOGY COMMENT ADEQUATE; SEGMENTED NEUTROPHILS % 76 % (40-70)
[2020-02-26] MEDS: INSULIN HUMULIN R 100 UNIT/ML 3ML SQ SCH ×4 (06:00→17:17)
[2020-02-26 07:59] VITALS: BP 123/60
[2020-02-26] MEDS: LACTATED RINGERS 1000ML 1,000 ML IV SCH (08:12)
[2020-02-26] MEDS: FUROSEMIDE 10 MG/ML 2ML VIAL IV SCH (08:12)
[2020-02-26] MEDS: ENOXAPARIN SODIUM 40 MG/0.4 ML SYRINGE SQ SCH (08:13)
[2020-02-26] MEDS: INSULIN GLARGINE 100 UNITS/ML 10 ML VIAL SQ SCH (08:18)
[2020-02-26] MEDS: ASCORBIC ACID 500 MG TAB PO SCH ×2 (08:19→21:00)
[2020-02-26] MEDS: NYSTATIN 15 GM POWDER TP SCH ×2 (08:19→21:00)
[2020-02-26] MEDS: MULTIVITAMIN WITH MINERALS TABLET PO SCH (08:19)
[2020-02-26] MEDS: METOPROLOL TARTRATE 25 MG TAB NG SCH ×2 (08:19→21:00)
[2020-02-26] MEDS: ZINC SULFATE 220 CAPSULE PO SCH (08:19)
[2020-02-26] MEDS: FAMOTIDINE 20MG TAB 20 MG TAB PO SCH ×2 (08:19→21:00)
[2020-02-26] MEDS: ASPIRIN 325 MG TABLET NG SCH (08:19)
--- NOTE | 2020-02-26 09:00 | NUR ---
Hospice Information SW spoke with pt's dtr. Loraine, provided information on hospice/GIP. Daughter voiced an understanding, however, stated she must first speak with siblings. Daughter to contact SW when decision is made. CM made aware.
[2020-02-26] MEDS ORDERED: METOPROLOL TARTRATE 1 MG/ML 5ML VIAL IV PRN (09:30)
[2020-02-26 11:22] VITALS: BP 109/68
[2020-02-26 16:00] VITALS: BP 109/64
[2020-02-26 20:00] VITALS: BP 97/60
[2020-02-26] MEDS: ATORVASTATIN CALCIUM 40 MG TABLET PO SCH (21:00)
[2020-02-26 23:48] VITALS: BP 100/54
[2020-02-27 03:32] VITALS: BP 104/60
[2020-02-27] MEDS: INSULIN HUMULIN R 100 UNIT/ML 3ML SQ SCH ×4 (06:00→16:16)
[2020-02-27] MEDS: LACTATED RINGERS 1000ML 1,000 ML IV SCH (06:54)
--- NOTE | 2020-02-27 09:36 | NUR ---
Hospice Declined SW spoke with pt's dtr. Loraine for follow up on Hospice decision. Loraine stated that she spoke with her siblings and they all decided against Hospice, stating "its' just like giving up". SW provided education again on hospice, however, dtr. continued to decline. Dtr. informed that family could still request hospice in the future and encouraged dtr. to telephone this worker or primary nurse for any questions or assistance; dtr. voiced an understanding. CM made aware.
[2020-02-27] MEDS: ZINC SULFATE 220 CAPSULE PO SCH (09:51)
[2020-02-27] MEDS: ASPIRIN 325 MG TABLET NG SCH (09:51)
[2020-02-27] MEDS: FAMOTIDINE 20MG TAB 20 MG TAB PO SCH ×2 (09:51→21:03)
[2020-02-27] MEDS: ASCORBIC ACID 500 MG TAB PO SCH ×2 (09:51→21:03)
[2020-02-27] MEDS: MULTIVITAMIN WITH MINERALS TABLET PO SCH (09:52)
[2020-02-27] MEDS: METOPROLOL TARTRATE 25 MG TAB NG SCH ×2 (09:52→21:04)
[2020-02-27] MEDS: ENOXAPARIN SODIUM 40 MG/0.4 ML SYRINGE SQ SCH (09:52)
[2020-02-27] MEDS: NYSTATIN 15 GM POWDER TP SCH ×2 (09:53→21:04)
[2020-02-27 10:00] VITALS: BP 99/65
[2020-02-27 12:00] VITALS: BP 102/62
--- NOTE | 2020-02-27 13:26 | NUR ---
HOLD TREATMENT Pt WITH POOR RESPIRATORY SUPPORT AT THIS TIME TO PARTICIPATE IN THERAPEUTIC INTERVENTION AT THIS TIME. RECOMMEND HOLD TREATMENT. TOLL SETTLEMENT CLERK WILL CONTINUE FOLLOWING Pt. Addendum: 02/27/20 at 1330 by JIM CAPONE, SPT ST Amended: Links added.
[2020-02-27 17:00] VITALS: BP 104/64
[2020-02-27 19:30] VITALS: BP 95/59
[2020-02-27] MEDS: ATORVASTATIN CALCIUM 40 MG TABLET PO SCH (21:04)
[2020-02-27 23:59] VITALS: BP 98/57
[2020-02-28 03:30] VITALS: BP 87/53
--- NOTE | 2020-02-28 03:45 | NUR ---
PATIENT FLACCID BILATERAL EXTREMITIES. NON RESPONSIVE TO PAINFUL STIMULI. BP 87/53, HR 125, 02 SATS AT 95% NRB AND HI SUSI 45.
--- NOTE | 2020-02-28 04:15 | NUR ---
SPOKE TO NICOLASA CARRANZA. ORDERS GIVEN
--- NOTE | 2020-02-28 04:30 | NUR ---
SPOKE TO VIKI DAUGHTER TO INFORM OF CHANGE IN PATIENT
[2020-02-28 04:48] LABS: BASOPHILS % (AUTO) 0.1 % (0.0-5.0); EOSINOPHILS % (AUTO) 0.1 % (0.0-8.0); HEMATOCRIT 40.4 % (36-48); MEAN CORPUSCULAR HEMOGLOBIN 28.3 pg (27.0-33.0); MEAN CORPUSCULAR HGB CONC 28.7 g/dL (32.0-36.0); MEAN CORPUSCULAR VOLUME 98.5 fL (79-99); MONOCYTES % (AUTO) 5.5 % (3.0-13.0); NEUTROPHILS % (AUTO) 88.9 % (40.0-77.0); PLATELET COUNT (AUTO) 181 K/uL (130-400); RED CELL DISTRIBUTION WIDTH 14.7 % (11.0-15.5); WHITE BLOOD COUNT (AUTO) 12.2 K/uL (4.8-10.8)
[2020-02-28 04:52] LABS: ABG BASE EXCESS 5.9 mmol/L (-2.0-3.0); ABG HCO3 38.4 mmol/L (21.0-28.0); ABG OXYGEN SATURATION 88.7 % (95.0-99.0); ABG PCO2 103 mmHg (32-45)
[2020-02-28] MEDS: INSULIN HUMULIN R 100 UNIT/ML 3ML SQ SCH ×4 (06:00→16:12)
--- NOTE | 2020-02-28 06:00 | NUR ---
BENCHMARK PAGED FOR CRITICAL VALUE ABG AND DROP IN SBP 78/46. PATIENT LABORED BREATHING. NO CT SCAN DUE TO UNSTABLE PATIENT. CXR DONE
--- NOTE | 2020-02-28 06:30 | NUR ---
UPDATED DAUGHTER VIKI ON PATIENT STATUS
--- NOTE | 2020-02-28 06:32 | NUR ---
SPOKE TO Julia CARRANZA. INFORMED OF PATIENT CONDITION. ADVISED TO SPEAK TO FAMILY ABOUT COMFORT MEASURES
[2020-02-28 07:45] LABS: ALBUMIN 2.1 g/dL (3.5-5.0); BILIRUBIN,TOTAL 0.5 mg/dL (0.2-1.0); CREATININE 1.3 mg/dL (0.5-1.5); MAGNESIUM 3.2 mg/dL (1.80-2.40); POTASSIUM 4.9 mmol/L (3.5-5.1)
[2020-02-28] MEDS: METOPROLOL TARTRATE 25 MG TAB NG SCH ×2 (08:10→21:00)
[2020-02-28] MEDS: ASPIRIN 325 MG TABLET NG SCH (08:10)
[2020-02-28] MEDS: FUROSEMIDE 10 MG/ML 2ML VIAL IV SCH (08:10)
[2020-02-28] MEDS: MULTIVITAMIN WITH MINERALS TABLET PO SCH (08:10)
[2020-02-28] MEDS: ASCORBIC ACID 500 MG TAB PO SCH ×2 (08:11→21:00)
[2020-02-28] MEDS: FAMOTIDINE 20MG TAB 20 MG TAB PO SCH ×2 (08:11→21:00)
[2020-02-28] MEDS: ZINC SULFATE 220 CAPSULE PO SCH (08:11)
[2020-02-28 08:40] VITALS: BP 82/49
[2020-02-28] MEDS: ENOXAPARIN SODIUM 40 MG/0.4 ML SYRINGE SQ SCH (09:06)
[2020-02-28] MEDS: NYSTATIN 15 GM POWDER TP SCH ×2 (09:07→21:43)
[2020-02-28] MEDS: LACTATED RINGERS 1000ML 1,000 ML IV SCH ×2 (10:22→21:42)
[2020-02-28 12:06] VITALS: BP 86/53
[2020-02-28 16:56] VITALS: BP 81/49
[2020-02-28] MEDS ORDERED: LORAZEPAM 2 MG/ML 1 ML VIAL IVP PRN (17:00)
[2020-02-28] MEDS ORDERED: HYDROMORPHONE 1 MG/1 ML AMP IVP PRN (17:00)
[2020-02-28 19:35] VITALS: BP 64/39
[2020-02-28] MEDS: ATORVASTATIN CALCIUM 40 MG TABLET PO SCH (21:00)
--- NOTE | 2020-02-28 21:35 | NUR ---
Benchmark paged x2.
--- NOTE | 2020-02-28 22:05 | NUR ---
Provider update Spoke with Yeimi Mancilla regarding patient's condition. Per Yeimi Mancilla, patient is DNR and comfort measures and no need to contact provider for VS changes.
[2020-02-28 23:53] VITALS: BP 63/38
[2020-02-29] MEDS: INSULIN HUMULIN R 100 UNIT/ML 3ML SQ SCH
--- NOTE | 2020-02-29 01:09 | NUR ---
VS change Patient HR 40s and apenic. Oxygen saturations 87-89% with RR: 4. high density talc coater operator notified.
--- NOTE | 2020-02-29 01:25 | NUR ---
Patient noted to have asystole with no pulse or respirations. vegetable farmworker and warehouse insulation worker notified.
--- NOTE | 2020-02-29 01:32 | NUR ---
Sewer Builder At bedside; call time of at 0133. web site manager contacted daughter with update.
--- NOTE | 2020-02-29 02:03 | NUR ---
MOTORCYCLE ENGINE ASSEMBLER PRONOUNCED TIME OF AT 0133. DAUGHTER VIKI DRAKE WAS NOTIFIED AND ATTENDING GROUP WAS NOTIFIED.
--- NOTE | 2020-02-29 03:08 | NUR ---
DISCHARGE PATIENT PLACED IN BAG. CELL PHONE, CLOTHING AND SHOES PROVIDED TO SECURITY. SECURITY [place] [facility] [place]
== END 2020-02-29 01:33 | disposition expired | DRG 137 ==
LOC: EDH 11:12 → EDHIP 11:13 → OBSVTOIN 11:13 → 4AH 02-06 09:24
PROVIDERS: ADMIT Internal Medicine Critical Care Medicine; ATTEND Internal Medicine Critical Care Medicine
PROC: 30233K1 Transfusion of Nonautologous Frozen Plasma into Peripheral Vein, Percutaneous Approach (ICD-10-PCS; principal; 2020-02-09)
DX: U07.1 COVID-19 (principal); J96.01 Acute respiratory failure with hypoxia; J12.89 Other viral pneumonia; I10 Essential (primary) hypertension; E11.9 Type 2 diabetes mellitus without complications; J90 Pleural effusion, not elsewhere classified; F19.90 Other psychoactive substance use, unspecified, uncomplicated; I63.9 Cerebral infarction, unspecified; D68.69 Other thrombophilia; I69.351 Hemiplegia and hemiparesis following cerebral infarction affecting right dominant side; E86.9 Volume depletion, unspecified; E87.0 Hyperosmolality and hypernatremia; R13.10 Dysphagia, unspecified; R47.01 Aphasia; Z66 Do not resuscitate
CPT/HCPCS: 36415; 36430; 36600; 70450; 71045; 71250; 80048; 80053; 80076; 81001; 82140; 82248; 82728; 82803; 82948; 83036; 83615; 83735; 83880; 84100; 84132; 84145; 84439; 84443; 84484; 85025; 85027; 85378; 86140; 86850; 86900; 86901; 86927; 87088; 87804; 87880; 92610; 93005; 93356; 94760; 99291; A4606; C8929; G0378; J0456; J0696; J1100; J1650; J1815; J1940; J2930; J3490; J7070; J7120; P9017; U0003